=== PATIENT | female | born 1965 | race Caucasian/White ===

== ENCOUNTER 2019-12-19 10:01 | Emergency (ER) | payer OTHER, SELFPAY | END 2019-12-19 10:38 | disposition home or self-care (01) | LOC: BURERS 10:01 | DX: S46.911A Strain of unspecified muscle, fascia and tendon at shoulder and upper arm level, right arm, initial encounter (principal); F17.210 Nicotine dependence, cigarettes, uncomplicated; X50.1XXA Overexertion from prolonged static or awkward postures, initial encounter | CPT/HCPCS: 99283 ==